=== PATIENT | female | born 1975 | race Two or more races ===

== ENCOUNTER 2022-10-24 19:44 | Emergency (ER) | payer OTHER ==
[~2022-10-24] VITALS: Ht 160 cm; Wt 108.9 kg
[2022-10-24] MEDS ORDERED: HYDROCHLOROTHIA25 MG PO (20:35)
[2022-10-24] MEDS ORDERED: AVAPRO300 MG PO (20:35)
[2022-10-24] MEDS ORDERED: NORVASC5 MG PO (20:35)
[2022-10-24] MEDS ORDERED: TOPROL XL25 MG PO (20:36)
[2022-10-24] MEDS ORDERED: HYDRALAZINE HCL25 MG PO (20:36)
[2022-10-24] MEDS ORDERED: LIPITOR80 MG (20:37)
== END 2022-10-25 00:10 | disposition home or self-care (01) ==
LOC: ER 19:45
PROVIDERS: General Practice
DX: R10.9 Unspecified abdominal pain (principal); D25.9 Leiomyoma of uterus, unspecified

== ENCOUNTER 2023-01-12 06:54 | Inpatient (IN) | payer OTHER ==
[~2023-01-12] VITALS: Ht 160 cm; Wt 108.9 kg
[~2023-01-12 06:54] MED LIST: AVAPRO300 MG PO; HYDRALAZINE HCL25 MG PO; HYDROCHLOROTHIA25 MG PO; LIPITOR80 MG; NORVASC5 MG PO; TOPROL XL25 MG PO
[2023-01-12] MEDS ORDERED: FOLIC ACID1 MG (15:26)
[2023-01-12 20:41] LABS: HEMATOCRIT 37.9 % (36.0-45.00); HEMOGLOBIN 12.2 g/dL (12.0-15.00); MEAN CELL VOLUME 85.9 fL (80.00-100.00); MEAN CORPUSCULAR HEMOGLOBIN 27.6 pg (27.00-32.0); MEAN CORPUSCULAR HGB CONC 32.1 g/dl (32.0-36.0); RED BLOOD COUNT 4.41 M/uL (4.00-6.00); RED CELL DISTRIBUTION WIDTH 14.2 % (11.5-14.5)
[2023-01-12 20:42] LABS: PLATELET COUNT 88 K/uL (150-450)
[2023-01-13 09:17] LABS: HEMATOCRIT 33.7 % (36.0-45.00); HEMOGLOBIN 11.1 g/dL (12.0-15.00); MEAN CORPUSCULAR HEMOGLOBIN 28.3 pg (27.00-32.0); MEAN CORPUSCULAR HGB CONC 32.9 g/dl (32.0-36.0); RED BLOOD COUNT 3.91 M/uL (4.00-6.00); RED CELL DISTRIBUTION WIDTH 14.4 % (11.5-14.5)
[2023-01-13 09:20] LABS: PLATELET COUNT 109 K/uL (150-450)
[2023-01-13 14:56] LABS: ALBUMIN 2.6 gm/dL (3.4-5.0); BILIRUBIN TOTAL 1.1 mg/dL (0.3-1.2); CALCIUM 7.6 mg/dL (8.5-10.1); CREATININE SERUM 1.98 mg/dL (0.55-1.02); GFR 26.79; TOTAL PROTEIN 5.6 gm/dL (6.4-8.2)
[2023-01-13 14:58] LABS: POTASSIUM 2.95 mEq/L (3.5-5.1)
[2023-01-13 16:59] LABS: URINE APPEARANCE Clear; URINE BACTERIA 91.9 uL (0.0-1933); URINE BILIRRUBIN Negative (NEGATIVE); URINE BLOOD Large; URINE COLOR Yellow; URINE EPITHELIAL CELLS 72.1 uL (0.0-38.8); URINE GLUCOSE Negative (NEGATIVE); URINE LEUKOCYTE Small; URINE NITRATE Negative; URINE PROTEIN Trace (NEGATIVE); URINE UROBILINOGEN 0.2 E.U./dl; URINE WBC 46.9 uL (0.0-23.2)
[2023-01-14 07:00] LABS: HEMATOCRIT 32.5 % (36.0-45.00); HEMOGLOBIN 10.7 g/dL (12.0-15.00); MEAN CELL VOLUME 85.8 fL (80.00-100.00); MEAN CORPUSCULAR HEMOGLOBIN 28.3 pg (27.00-32.0); PLATELET COUNT 132 K/uL (150-450); RED BLOOD COUNT 3.79 M/uL (4.00-6.00); RED CELL DISTRIBUTION WIDTH 14.7 % (11.5-14.5)
[2023-01-14 07:33] LABS: ALBUMIN 2.7 gm/dL (3.4-5.0); BILIRUBIN TOTAL 0.99 mg/dL (0.3-1.2); CALCIUM 7.6 mg/dL (8.5-10.1); CREATININE SERUM 1.25 mg/dL (0.55-1.02); GFR 45.55; GLOBULINA 3.4 G/DL (2.4-3.5); POTASSIUM 3.16 mEq/L (3.5-5.1); TOTAL PROTEIN 6.1 gm/dL (6.4-8.2)
[2023-01-15] MEDS ORDERED: GABAPENTIN300 MG PO (06:58)
[2023-01-15] MEDS ORDERED: IBUPROFEN800 MG PO (06:58)
[2023-01-15] MEDS ORDERED: MICRO-K 1010 MEQ PO (06:59)
[2023-01-15] MEDS ORDERED: SIMETHICONE125 M1 PO (06:59)
[2023-01-15] MEDS ORDERED: CEFADROXIL500 MG PO (07:00)
== END 2023-01-15 09:31 | disposition home or self-care (01) | DRG 743 ==
LOC: OB/GYN 06:54 → O/R 06:54 → OB/GYN 08:07
PROVIDERS: Internal Medicine; ADMIT Obstetrics & Gynecology; ATTEND Obstetrics & Gynecology
PROC: 0UT60ZZ Resection of Left Fallopian Tube, Open Approach (ICD-10-PCS; 2023-01-12)
PROC: 0UT10ZZ Resection of Left Ovary, Open Approach (ICD-10-PCS; 2023-01-12)
PROC: 0UT90ZZ Resection of Uterus, Open Approach (ICD-10-PCS; principal; 2023-01-12 13:30)
DX: D25.1 Intramural leiomyoma of uterus (principal); N72 Inflammatory disease of cervix uteri; D27.1 Benign neoplasm of left ovary; Z20.822 Contact with and (suspected) exposure to COVID-19

== ENCOUNTER 2023-12-25 05:00 | Day surgery (SDC) | payer OTHER ==
[~2023-12-25 05:00] MED LIST changes: +CEFADROXIL500 MG PO; +FOLIC ACID1 MG; +GABAPENTIN300 MG PO; +IBUPROFEN800 MG PO; +MICRO-K 1010 MEQ PO; +SIMETHICONE125 M1 PO; +SYNTHROID88 MCG
[2023-12-25] MEDS ORDERED: METHYLPREDNISOLONE ACETATE 80 MG/ML VIAL IJ ONE (10:15)
[2023-12-25] MEDS ORDERED: EPINEPHRINE HCL/PF 1 MG/ML AMPUL IR ONE (10:15)
[2023-12-25] MEDS ORDERED: CEFAZOLIN SODIUM 1,000 MG VIAL IV ONE ×2 (10:15→11:45)
[2023-12-25] MEDS ORDERED: DUI500 PO (11:45)
[2023-12-25] MEDS ORDERED: PROMETHAZINE HCL 25 MG/ML AMPUL IM PRN (11:45)
[2023-12-25] MEDS ORDERED: MEPERIDINE HCL/PF 25 MG/ML VIAL IM PRN (11:45)
[2023-12-25] MEDS ORDERED: TRAM1TAB98 PO (11:50)
[2023-12-25] MEDS ORDERED: CEFADROXIL 500 MG CAPSULE PO SCH (21:00)
== END 2023-12-25 14:10 | disposition home or self-care (01) ==
LOC: CIR.AMB 05:00
PROVIDERS: ATTEND Orthopaedic Surgery Sports Medicine
DX: S83.241A Other tear of medial meniscus, current injury, right knee, initial encounter (principal); S83.281A Other tear of lateral meniscus, current injury, right knee, initial encounter; M22.41 Chondromalacia patellae, right knee; M67.51 Plica syndrome, right knee; M23.51 Chronic instability of knee, right knee

== ENCOUNTER 2024-02-22 12:09 | Inpatient (IN) | payer OTHER ==
[~2024-02-22] VITALS: Ht 157.5 cm; Wt 129.7 kg
[~2024-02-22 12:09] MED LIST changes: +DUI500 PO; +TRAM1TAB98 PO
[2024-02-22] MEDS ORDERED: FUROsemide 40 MG/4 ML VIAL ONE (13:29)
[2024-02-22] MEDS ORDERED: FUROsemide 40 MG/4 ML VIAL IV ONE (13:30)
[2024-02-22 13:55] LABS: URINE APPEARANCE Clear; URINE BILIRRUBIN Negative (NEGATIVE); URINE BLOOD Small; URINE COLOR Dark Yellow; URINE GLUCOSE Negative (NEGATIVE); URINE KETONE Negative (NEGATIVE); URINE LEUKOCYTE Negative; URINE NITRATE Negative
[2024-02-22 14:00] LABS: URINE CAST 3.53 uL (0.0-1.40); URINE EPITHELIAL CELLS 48.1 uL (0.0-38.8); URINE RBC 29.7 uL (0.0-20.8); URINE WBC 15.9 uL (0.0-23.2)
[2024-02-22 14:03] LABS: HEMATOCRIT 41.3 % (36.0-45.00); HEMOGLOBIN 13.3 g/dL (12.0-15.00); MEAN CELL VOLUME 80.7 fL (80.00-100.00); MEAN CORPUSCULAR HGB CONC 32.2 g/dl (32.0-36.0); RED BLOOD COUNT 5.13 M/uL (4.00-6.00); RED CELL DISTRIBUTION WIDTH 16.5 % (11.5-14.5)
[2024-02-22 14:04] LABS: PLATELET COUNT 34 K/uL (150-450)
[2024-02-22 14:07] LABS: PLT IN CITRATE 26 K/uL (150-450)
[2024-02-22 14:12] LABS: URINE PROTEIN 100 (NEGATIVE)
[2024-02-22 14:20] LABS: ALBUMIN 3.2 gm/dL (3.4-5.0); BILIRUBIN TOTAL 2.28 mg/dL (0.3-1.2); CALCIUM 8.3 mg/dL (8.5-10.1); CREATININE SERUM 0.95 mg/dL (0.55-1.02); GFR 62.27; GLOBULINA 3.8 G/DL (2.4-3.5)
[2024-02-22 14:24] LABS: POTASSIUM 2.74 mEq/L (3.5-5.1)
[2024-02-22 14:27] LABS: INR 1.1; PARTIAL THROMBOPLASTIN TIME 24.5 SECONDS (22.0-34.0); PROTHROMBIN TIME 11.9 SECONDS (9.0-11.5)
[2024-02-22] MEDS ORDERED: POTASSIUM CHLORIDE IN WATER 40 MEQ/100 ML PIGGYBAG IV ONE (14:41)
[2024-02-22] MEDS ORDERED: POTASSIUM CHLORIDE IN WATER 40 MEQ/100 ML PIGGYBAG IV SCH (14:45)
[2024-02-22] MEDS ORDERED: MAGNESIUM SULFATE 10,000 MG/20 ML VIAL IV ONE (14:45)
[2024-02-22] MEDS ORDERED: MAGNESIUM SULFATE 50% 1,000 MG/2 ML VIAL ONE (14:47)
[2024-02-22] MEDS ORDERED: IPRATROPIUM BROMIDE 0.5 MG/2.5 ML AMPUL.NEB IH SCH (17:41)
[2024-02-22] MEDS ORDERED: ACETAMINOPHEN 500 MG GEL..CAP PO PRN (17:45)
[2024-02-22] MEDS ORDERED: NITROGLYCERIN IN 5 % DEXTROSE 250 ML IV SCH (17:48)
[2024-02-22] MEDS ORDERED: NITROGLYCERIN IN 5 % DEXTROSE 50 MG/250 ML BOTTLE IV ONE (18:31)
[2024-02-22 19:07] LABS: ABG pCO2 76.6 mmHg (35-45); BICARBONATE 45.3 mmol/l (23-25); SaO2 46.8 %; Tco2 47.7 mmol/l; allen test SATISFACTORY; o2 21 %; puncture site RADIAL LEFT
[2024-02-22 19:08] LABS: ABG PO2 24.9 mmHg (80-100)
[2024-02-22 20:03] LABS: MAGNESIUM 2.2 mg/dL (1.8-2.4); PHOSPHOROUS 4.7 mg/dL (2.5-4.9)
[2024-02-22] MEDS ORDERED: MEROPENEM 500 MG/VIAL VIAL IV SCH (21:36)
[2024-02-22] MEDS ORDERED: 0.9 % SODIUM CHLORIDE 1,000 ML IV SCH (21:45)
[2024-02-22] MEDS ORDERED: ONDANSETRON HCL 4 MG in 0.9 % SODIUM CHLORIDE 50 ML IV ONE (21:45)
[2024-02-22] MEDS ORDERED: METHYLPREDNISOLONE SOD SUCC 125 MG VIAL IV ONE (21:45)
[2024-02-22] MEDS ORDERED: PHYTONADIONE 10 MG/ML AMPUL IV ONE (22:00)
[2024-02-22] MEDS ORDERED: VANCOMYCIN HCL 1,000 MG VIAL IV ONE (22:00)
[2024-02-22] MEDS ORDERED: PROPOFOL 10,000 MCG/ML VIAL ONE (22:10)
[2024-02-22] MEDS ORDERED: ONDANSETRON HCL 2 MG/ML VIAL ONE (22:10)
[2024-02-22] MEDS ORDERED: METHYLPREDNISOLONE SOD SUCC 125 MG VIAL ONE (22:10)
[2024-02-22 22:12] LABS: ABG pCO2 101.5 mmHg (35-45); BASE EXCESS 14.5 mmol/l; BICARBONATE 46.6 mmol/l (23-25); SaO2 93.4 %; Tco2 49.7 mmol/l; allen test SATISFACTORY; o2 100 %; puncture site RADIAL LEFT
[2024-02-22] MEDS ORDERED: PROPOFOL 100 ML IV SCH (22:30)
[2024-02-22 22:52] LABS: ABG PH 7.265 (7.35-7.45); ABG PO2 68.8 mmHg (80-100); BASE EXCESS 13.8 mmol/l; BICARBONATE 46.2 mmol/l (23-25); SaO2 91.3 %; Tco2 49.3 mmol/l
[2024-02-22 22:53] LABS: allen test SATISFACTORY; o2 100 %; puncture site RADIAL LEFT
[2024-02-22 23:00] VITALS: BP 129/53; O2SAT 90
[2024-02-22 23:33] VITALS: BP 99/46
[2024-02-23] VITALS (17 sets, daily range): BP systolic 115–156; BP diastolic 57–86; O2SAT 92–100
[2024-02-23] MEDS ORDERED: FUROsemide 20 MG/2 ML VIAL IV SCH ×2 (01:00→05:00)
[2024-02-23] MEDS ORDERED: FUROsemide 20 MG/2 ML VIAL ONE (04:29)
[2024-02-23] MEDS ORDERED: LEVOTHYROXINE SODIUM 88 MCG TABLET PO SCH (06:00)
[2024-02-23] MEDS ORDERED: DIATRIZOATE MEGLUMINE, SODIUM 30 ML BOTTLE ONE (07:43)
[2024-02-23 07:53] LABS: COL ADP 127 SECONDS (56-102)
[2024-02-23 07:54] LABS: COL EPI 143 SECONDS (82-175)
[2024-02-23] MEDS ORDERED: GABAPENTIN 300 MG CAPSULE PO SCH (09:00)
[2024-02-23] MEDS ORDERED: FAMOTIDINE/PF 20 MG in 0.9 % SODIUM CHLORIDE 8 ML IV PUSH SCH (09:00)
[2024-02-23] MEDS ORDERED: PANTOPRAZOLE SODIUM 40 MG/VIAL VIAL IV PUSH SCH (11:01)
[2024-02-23] MEDS ORDERED: AZITHROMYCIN 500 MG VIAL IV SCH (11:03)
[2024-02-23] MEDS ORDERED: CEFEPIME HCL 1,000 MG VIAL IV SCH (11:03)
[2024-02-23] MEDS ORDERED: LEVALBUTEROL HCL 1.25 MG/3 ML SOLUTION IH SCH ×2 (11:04→14:00)
[2024-02-23] MEDS ORDERED: HYDROCORTISONE SODIUM SUCC/PF 100 MG VIAL IV SCH (11:04)
[2024-02-23] MEDS ORDERED: HYDROCORTISONE SODIUM SUCC/PF 100 MG VIAL IV STA (11:04)
[2024-02-23] MEDS ORDERED: BUDESONIDE 0.5 MG/2 ML AMPUL.NEB IH SCH (11:05)
[2024-02-23] MEDS ORDERED: POLYVINYL ALCOHOL 15 ML DROPS OP SCH (11:09)
[2024-02-23] MEDS ORDERED: CHLORHEXIDINE GLUCONATE 15ML BRUSH KIT MM SCH (11:09)
[2024-02-23] MEDS ORDERED: METHYLPREDNISOLONE SOD SUCC 40 MG VIAL IV SCH (11:11)
[2024-02-23] MEDS ORDERED: SODIUM CHLORIDE 0.45 % 1,000 ML IV SCH (11:15)
[2024-02-23] MEDS ORDERED: NITROGLYCERIN IN 5 % DEXTROSE 250 ML IV SCH (11:15)
[2024-02-23] MEDS ORDERED: NITROGLYCERIN IN 5 % DEXTROSE 50 MG/250 ML BOTTLE IV ONE (11:28)
[2024-02-23] MEDS ORDERED: DEXTROSE 5% IV SCH (11:30)
[2024-02-23] MEDS ORDERED: HYDROCORTISONE SODIUM SUCC IV SCH (11:30)
[2024-02-23] MEDS ORDERED: WATER IV SCH (11:30)
[2024-02-23 13:15] LABS: HEMATOCRIT 36.6 % (36.0-45.00); HEMOGLOBIN 11.8 g/dL (12.0-15.00); MEAN CELL VOLUME 79.2 fL (80.00-100.00); MEAN CORPUSCULAR HEMOGLOBIN 25.6 pg (27.00-32.0); MEAN CORPUSCULAR HGB CONC 32.3 g/dl (32.0-36.0); RED BLOOD COUNT 4.62 M/uL (4.00-6.00)
[2024-02-23 13:18] LABS: PLATELET COUNT 65 K/uL (150-450)
[2024-02-23 16:22] LABS: ABG PH 7.502 (7.35-7.45); ABG pCO2 49.8 mmHg (35-45); BASE EXCESS 12.9 mmol/l; BICARBONATE 38.1 mmol/l (23-25); SaO2 97.8 %; Tco2 39.6 mmol/l
[2024-02-23 16:24] LABS: allen test SATISFACTORY; o2 50 %; puncture site RADIAL RIGHT
[2024-02-23] MEDS ORDERED: HYDROCORTISONE SODIUM SUCC/PF 1 MG/ML ML IV SCH (17:00)
[2024-02-23] MEDS ORDERED: VANCOMYCIN HCL 5 MG/ML REDILUIDO IV SCH (17:00)
[2024-02-23] MEDS ORDERED: levoFLOXacin IN DEXTROSE 5 % 150 ML IV SCH (21:00)
[2024-02-23 21:04] LABS: URINE APPEARANCE Clear; URINE BILIRRUBIN Negative (NEGATIVE); URINE BLOOD Moderate; URINE COLOR Yellow; URINE GLUCOSE Negative (NEGATIVE); URINE KETONE Trace (NEGATIVE); URINE LEUKOCYTE Trace; URINE NITRATE Negative; URINE PROTEIN Negative (NEGATIVE); URINE UROBILINOGEN 0.2 E.U./dl
[2024-02-23 21:08] LABS: URINE BACTERIA 26.9 uL (0.0-1933); URINE EPITHELIAL CELLS 2.8 uL (0.0-38.8); URINE RBC 431.2 uL (0.0-20.8); URINE WBC 9.3 uL (0.0-23.2)
[2024-02-23 21:14] LABS: URINE CAST 0.14 uL (0.0-1.40)
[2024-02-24] VITALS (23 sets, daily range): BP systolic 121–179; BP diastolic 71–106; O2SAT 91–99
[2024-02-24] MEDS ORDERED: LEVOTHYROXINE SODIUM 75 MCG TABLET PO SCH (06:00)
[2024-02-24 07:15] LABS: ALBUMIN 2.4 gm/dL (3.4-5.0); BILIRUBIN TOTAL 2.25 mg/dL (0.3-1.2); CALCIUM 7.8 mg/dL (8.5-10.1); CREATININE SERUM 0.84 mg/dL (0.55-1.02); GFR 71.77; TOTAL PROTEIN 5.4 gm/dL (6.4-8.2)
[2024-02-24 07:32] LABS: POTASSIUM 2.5 mEq/L (3.5-5.1)
[2024-02-24] MEDS ORDERED: POTASSIUM CHLORIDE IN WATER 100 ML IV SCH (08:00)
[2024-02-24] MEDS ORDERED: SOD FERRIC GLUC COMPLX/SUCROSE 62.5 MG in 0.9 % SODIUM CHLORIDE 50 ML IV SCH (09:00)
[2024-02-24] MEDS ORDERED: CHLORHEXIDINE GLUCONATE 120 ML BOTTLE TOP ONE (09:56)
[2024-02-24] MEDS ORDERED: MAGNESIUM SULFATE 50% 1,000 MG/2 ML VIAL IM NR (10:30)
[2024-02-24 14:53] LABS: CHOL HDL RATIO 2.7 (0-5.0)
[2024-02-24 15:25] LABS: ABG PH 7.434 (7.35-7.45)
[2024-02-24 15:26] LABS: ABG PO2 81.3 mmHg (80-100); ABG pCO2 64.3 mmHg (35-45); BASE EXCESS 14.5 mmol/l; BICARBONATE 42.1 mmol/l (23-25); SaO2 96.8 %; Tco2 44.1 mmol/l; allen test SATISFACTORY; o2 50 %; puncture site RADIAL RIGHT
[2024-02-24] MEDS ORDERED: AMINO ACIDS 4.25%/DEXTROSE 10% 1,000 ML CENTRAL SCH (17:00)
[2024-02-25] VITALS (13 sets, daily range): BP systolic 120–174; BP diastolic 76–111; O2SAT 91–100
[2024-02-25 06:10] LABS: HEMATOCRIT 37.2 % (36.0-45.00); MEAN CORPUSCULAR HEMOGLOBIN 25.4 pg (27.00-32.0); MEAN CORPUSCULAR HGB CONC 32.2 g/dl (32.0-36.0); RED BLOOD COUNT 4.71 M/uL (4.00-6.00); RED CELL DISTRIBUTION WIDTH 16.8 % (11.5-14.5)
[2024-02-25 06:34] LABS: PLATELET COUNT 94 K/uL (150-450)
[2024-02-25 07:36] LABS: MANUAL PLATELET COUNT 154
[2024-02-25] MEDS ORDERED: METOPROLOL SUCCINATE 50 MG TAB.SR.24H PO SCH (09:00)
[2024-02-25] MEDS ORDERED: ENALAPRILAT DIHYDRATE 1.25 MG/ML VIAL IV PRN (09:30)
[2024-02-25] MEDS ORDERED: ISOSORBIDE MONONITRATE 30 MG TABLET PO NR (11:00)
[2024-02-25] MEDS ORDERED: hydrALAZINE HCL 20 MG VIAL IV PRN (11:15)
[2024-02-25] MEDS ORDERED: ENALAPRILAT DIHYDRATE 2.5 MG/2 ML VIAL IV SCH (12:00)
[2024-02-25] MEDS ORDERED: METOPROLOL TARTRATE 25 MG TABLET PO SCH (13:00)
[2024-02-25 13:25] LABS: CALCIUM 7.9 mg/dL (8.5-10.1); CREATININE SERUM 0.69 mg/dL (0.55-1.02); GFR 90.05
[2024-02-25 13:30] LABS: POTASSIUM 2.37 mEq/L (3.5-5.1)
[2024-02-25] MEDS ORDERED: MAGNESIUM SULFATE IN WATER 50 ML IV STA (14:06)
[2024-02-25] MEDS ORDERED: hydrALAZINE HCL 25 MG TABLET PO NR (15:00)
[2024-02-25] MEDS ORDERED: POTASSIUM CHLORIDE IN WATER 100 ML IV SCH (16:00)
[2024-02-25 16:08] LABS: ABG PH 7.543 (7.35-7.45); ABG PO2 90.2 mmHg (80-100); ABG pCO2 48.7 mmHg (35-45); BASE EXCESS 16.1 mmol/l; SaO2 98.3 %; Tco2 42.5 mmol/l
[2024-02-25 16:10] LABS: allen test SATISFACTORY; o2 40 %; puncture site RADIAL RIGHT
[2024-02-25 16:12] LABS: ABG PH 7.474 (7.35-7.45); ABG PO2 95.9 mmHg (80-100); ABG pCO2 57.2 mmHg (35-45); BASE EXCESS 14.5 mmol/l; SaO2 98.2 %; Tco2 42.8 mmol/l
[2024-02-25 16:13] LABS: allen test SATISFACTORY; o2 40 %; puncture site RADIAL RIGHT
[2024-02-25] MEDS ORDERED: hydrALAZINE HCL 25 MG TABLET PO SCH ×2 (17:00→21:00)
[2024-02-25] MEDS ORDERED: AMLODIPINE BESYLATE 5 MG TABLET PO SCH (21:00)
[2024-02-26] VITALS (9 sets, daily range): BP systolic 113–168; BP diastolic 70–103; O2SAT 97–100
[2024-02-26 08:44] LABS: HEMATOCRIT 37.1 % (36.0-45.00); HEMOGLOBIN 11.8 g/dL (12.0-15.00); MEAN CELL VOLUME 79.3 fL (80.00-100.00); MEAN CORPUSCULAR HEMOGLOBIN 25.2 pg (27.00-32.0); MEAN CORPUSCULAR HGB CONC 31.8 g/dl (32.0-36.0); RED BLOOD COUNT 4.67 M/uL (4.00-6.00); RED CELL DISTRIBUTION WIDTH 17.1 % (11.5-14.5)
[2024-02-26 08:45] LABS: PLATELET COUNT 120 K/uL (150-450)
[2024-02-26] MEDS ORDERED: ENOXAPARIN SODIUM 30 MG/0.3 ML SYRINGE SUBCUTANEO SCH (09:00)
[2024-02-26] MEDS ORDERED: ISOSORBIDE MONONITRATE 30 MG TABLET PO SCH (09:00)
[2024-02-26 09:34] LABS: ALBUMIN 2.5 gm/dL (3.4-5.0); BILIRUBIN TOTAL 2.15 mg/dL (0.3-1.2); CALCIUM 8.3 mg/dL (8.5-10.1); CREATININE SERUM 0.68 mg/dL (0.55-1.02); GFR 91.59; GLOBULINA 3.1 G/DL (2.4-3.5); TOTAL PROTEIN 5.6 gm/dL (6.4-8.2)
[2024-02-26 09:54] LABS: POTASSIUM 2.77 mEq/L (3.5-5.1)
[2024-02-26] MEDS ORDERED: POTASSIUM CHLORIDE IN WATER 100 ML IV SCH (10:15)
[2024-02-26 11:42] LABS: ABG PH 7.434 (7.35-7.45); ABG PO2 126.6 mmHg (80-100); ABG pCO2 53.5 mmHg (35-45); BASE EXCESS 8.8 mmol/l; Tco2 36.6 mmol/l
[2024-02-26 16:51] LABS: allen test SATISFACTORY; o2 40 %; puncture site RADIAL RIGHT
[2024-02-26] MEDS ORDERED: VANCOMYCIN HCL 5 MG/ML REDILUIDO IV SCH (17:00)
[2024-02-26 20:31] LABS: ALBUMIN 2.6 gm/dL (3.4-5.0); BILIRUBIN TOTAL 1.88 mg/dL (0.3-1.2); CALCIUM 8.4 mg/dL (8.5-10.1); CREATININE SERUM 0.77 mg/dL (0.55-1.02); GFR 79.35; GLOBULINA 3.2 G/DL (2.4-3.5); POTASSIUM 4.17 mEq/L (3.5-5.1); TOTAL PROTEIN 5.8 gm/dL (6.4-8.2)
[2024-02-27 04:04] VITALS: BP 160/92; O2SAT 100
[2024-02-27 08:00] VITALS: O2SAT 100
[2024-02-27 12:00] VITALS: BP 158/97; O2SAT 100
[2024-02-27 13:01] LABS: ABG PH 7.499 (7.35-7.45); ABG PO2 111.5 mmHg (80-100); ABG pCO2 37.5 mmHg (35-45); BASE EXCESS 5.2 mmol/l; BICARBONATE 28.5 mmol/l (23-25); SaO2 98.8 %; Tco2 29.7 mmol/l
[2024-02-27] MEDS ORDERED: hydrALAZINE HCL 50 MG TABLET PO SCH (13:01)
[2024-02-27 13:02] LABS: allen test SATISFACTORY; o2 40 %; puncture site RADIAL LEFT
[2024-02-27 16:00] VITALS: BP 135/89; O2SAT 100
[2024-02-27 16:24] LABS: ABG pCO2 54.5 mmHg (35-45); BASE EXCESS 4.9 mmol/l; BICARBONATE 31.5 mmol/l (23-25); SaO2 96.6 %; Tco2 33.2 mmol/l
[2024-02-27 16:30] LABS: allen test SATISFACTORY; puncture site RADIAL RIGHT
[2024-02-27 16:31] LABS: o2 36 %
[2024-02-27 20:00] VITALS: BP 141/83; O2SAT 100
[2024-02-27 23:03] VITALS: BP 133/85; O2SAT 100
[2024-02-28 04:10] VITALS: BP 131/80; O2SAT 100
[2024-02-28 07:00] VITALS: BP 138/77; O2SAT 100
[2024-02-28 12:00] VITALS: BP 148/96; O2SAT 100
[2024-02-28 16:00] VITALS: BP 108/72; O2SAT 100
[2024-02-28 20:00] VITALS: BP 125/77; O2SAT 97
[2024-02-28 22:54] VITALS: BP 138/89; O2SAT 97
[2024-02-29] VITALS (7 sets, daily range): BP systolic 135–159; BP diastolic 86–95; O2SAT 95–100
[2024-02-29 06:17] LABS: HEMATOCRIT 38.5 % (36.0-45.00); HEMOGLOBIN 12.5 g/dL (12.0-15.00); MEAN CELL VOLUME 80.6 fL (80.00-100.00); MEAN CORPUSCULAR HEMOGLOBIN 26.1 pg (27.00-32.0); MEAN CORPUSCULAR HGB CONC 32.4 g/dl (32.0-36.0); PLATELET COUNT 158 K/uL (150-450); RED BLOOD COUNT 4.77 M/uL (4.00-6.00); RED CELL DISTRIBUTION WIDTH 17.8 % (11.5-14.5)
[2024-02-29 07:01] LABS: ALBUMIN 2.6 gm/dL (3.4-5.0); BILIRUBIN TOTAL 1.24 mg/dL (0.3-1.2); CALCIUM 8.6 mg/dL (8.5-10.1); CREATININE SERUM 0.62 mg/dL (0.55-1.02); GFR 101.89; GLOBULINA 3.4 G/DL (2.4-3.5); MAGNESIUM 1.8 mg/dL (1.8-2.4); PHOSPHOROUS 3.8 mg/dL (2.5-4.9); POTASSIUM 3.35 mEq/L (3.5-5.1)
[2024-02-29] MEDS ORDERED: ENOXAPARIN SODIUM 40 MG/0.4 ML SYRINGE SUBCUTANEO SCH (09:00)
[2024-02-29] MEDS ORDERED: POTASSIUM CHLORIDE IN WATER 40 MEQ/100 ML PIGGYBAG IV SCH (09:00)
[2024-03-01] VITALS (9 sets, daily range): BP systolic 153–185; BP diastolic 92–98; O2SAT 90–97
[2024-03-01] MEDS ORDERED: LOSARTAN POTASSIUM 50 MG TABLET PO NR (10:00)
[2024-03-01] MEDS ORDERED: GUAIFENESIN 200 MG/10 ML BLIST.PACK PO SCH (12:00)
[2024-03-01] MEDS ORDERED: AMLODIPINE BESYLATE 5 MG TABLET PO SCH (17:00)
[2024-03-01] MEDS ORDERED: TEMAZEPAM 15 MG CAPSULE PO SCH (21:00)
[2024-03-01] MEDS ORDERED: POLYETHYLENE GLYCOL 3350 17 GM BLIST.PACK PO SCH (21:00)
[2024-03-02] VITALS (8 sets, daily range): BP systolic 133–154; BP diastolic 77–82; O2SAT 90–98
[2024-03-02] MEDS ORDERED: RIVAROXABAN 10 MG TAB PO SCH (09:00)
[2024-03-02] MEDS ORDERED: LOSARTAN POTASSIUM 50 MG TABLET PO SCH (09:00)
[2024-03-02 19:16] LABS: ABG PH 7.418 (7.35-7.45); ABG pCO2 54.4 mmHg (35-45)
[2024-03-02 19:17] LABS: ABG PO2 48.4 mmHg (80-100); BICARBONATE 34.4 mmol/l (23-25); SaO2 85.5 %; Tco2 36.1 mmol/l; allen test SATISFACTORY; o2 21 %; puncture site RADIAL RIGHT
[2024-03-02 23:33] LABS: CALCIUM 8.6 mg/dL (8.5-10.1); CREATININE SERUM 0.65 mg/dL (0.55-1.02); GFR 96.48; MAGNESIUM 1.9 mg/dL (1.8-2.4); PHOSPHOROUS 3.3 mg/dL (2.5-4.9); POTASSIUM 3.62 mEq/L (3.5-5.1)
[2024-03-03] VITALS (9 sets, daily range): BP systolic 140–150; BP diastolic 60–89; O2SAT 90–99
[2024-03-04] VITALS (8 sets, daily range): BP systolic 133–174; BP diastolic 78–94; O2SAT 90–98
[2024-03-04] MEDS ORDERED: FUROsemide 20 MG/2 ML VIAL IV SCH (09:00)
[2024-03-04 11:42] LABS: ABG PH 7.404 (7.35-7.45)
[2024-03-04 11:43] LABS: ABG PO2 49.3 mmHg (80-100); BASE EXCESS 11.4 mmol/l; BICARBONATE 39.1 mmol/l (23-25); SaO2 85.9 %; allen test SATISFACTORY; o2 21 %; puncture site RADIAL RIGHT
[2024-03-04] MEDS ORDERED: XOPENEX CO1.25 MG/0. IH (19:01)
[2024-03-04] MEDS ORDERED: XARELTO10 MG PO (19:01)
[2024-03-04] MEDS ORDERED: COZAAR50 MG PO (19:02)
[2024-03-04] MEDS ORDERED: AMLODIPINE BESYL5 MG PO (19:02)
[2024-03-04] MEDS ORDERED: ISOSORBIDE MONO30 MG PO (19:02)
[2024-03-04] MEDS ORDERED: LEVOTHYROXINE75 MCG PO (19:03)
[2024-03-04] MEDS ORDERED: LOPRESSOR25 MG PO (19:03)
[2024-03-04] MEDS ORDERED: HYDRALAZINE HCL50 MG PO (19:03)
[2024-03-04] MEDS ORDERED: LASIX20 MG PO (19:04)
== END 2024-03-04 19:14 | disposition home or self-care (01) | DRG 207 ==
LOC: ER 12:12 → ICU-2 19:49 → ICU 02-23 13:39 → MEDI 02-29 14:20
PROVIDERS: General Practice; Internal Medicine; Internal Medicine Infectious Disease; ADMIT Internal Medicine; ATTEND Internal Medicine
PROC: 5A1955Z Respiratory Ventilation, Greater than 96 Consecutive Hours (ICD-10-PCS; principal; 2024-02-22)
PROC: 0BH17EZ Insertion of Endotracheal Airway into Trachea, Via Natural or Artificial Opening (ICD-10-PCS; 2024-02-22)
PROC: BW24YZZ Computerized Tomography (CT Scan) of Chest and Abdomen using Other Contrast (ICD-10-PCS; 2024-02-22)
PROC: BW21YZZ Computerized Tomography (CT Scan) of Abdomen and Pelvis using Other Contrast (ICD-10-PCS; 2024-02-23)
PROC: BW24YZZ Computerized Tomography (CT Scan) of Chest and Abdomen using Other Contrast (ICD-10-PCS; 2024-02-23)
PROC: B24BYZZ Ultrasonography of Heart with Aorta using Other Contrast (ICD-10-PCS; 2024-02-23)
PROC: 02HV33Z Insertion of Infusion Device into Superior Vena Cava, Percutaneous Approach (ICD-10-PCS; 2024-02-23)
PROC: 30243N1 Transfusion of Nonautologous Red Blood Cells into Central Vein, Percutaneous Approach (ICD-10-PCS; 2024-02-23)
PROC: 4A12X4Z Monitoring of Cardiac Electrical Activity, External Approach (ICD-10-PCS; 2024-02-29)
PROC: B54DZZZ Ultrasonography of Bilateral Lower Extremity Veins (ICD-10-PCS; 2024-03-02)
DX: J80 Acute respiratory distress syndrome (principal); J18.9 Pneumonia, unspecified organism; J44.1 Chronic obstructive pulmonary disease with (acute) exacerbation; Z68.43 Body mass index [BMI] 50.0-59.9, adult; J81.1 Chronic pulmonary edema; I50.30 Unspecified diastolic (congestive) heart failure; J98.11 Atelectasis; D84.9 Immunodeficiency, unspecified; E66.01 Morbid (severe) obesity due to excess calories; I50.9 Heart failure, unspecified; E03.9 Hypothyroidism, unspecified; D69.6 Thrombocytopenia, unspecified; I80.9 Phlebitis and thrombophlebitis of unspecified site; I11.0 Hypertensive heart disease with heart failure